=== PATIENT | female | born 1950 | race Caucasian/White ===

== ENCOUNTER 2016-07-13 12:22 | Emergency (ER) | payer MEDICARE, BC ==
[~2016-07-13] VITALS: Ht 167.6 cm; Wt 108.6 kg
[~2016-07-13 12:22] MED LIST: HYDR-4 PO; HYDR12.512 PO; LISI-114 PO; TRAM-261 PO; VITAMIN C
[2016-07-13 12:25] VITALS: Ht 167.6 cm; Wt 108.6 kg
--- NOTE | 2016-07-13 12:39 | NUR ---
PROVIDER KRAIG HERNANDEZ IN ROOM W/ PT.
[2016-07-13] MEDS ORDERED: NORMAL SALINE 1,000 ML IV ONE (12:45)
[2016-07-13] MEDS ORDERED: DEXAMETHASONE 4mg/ml - 1ml INJECTION IV ONE (12:45)
[2016-07-13] MEDS ORDERED: TRAM50TA4 PO (12:52)
[2016-07-13] MEDS ORDERED: HYDR-3989 PO (12:52)
[2016-07-13] MEDS ORDERED: HYDR25TA PO (12:52)
--- NOTE | 2016-07-13 13:11 | NUR ---
XRAY PT GONE TO XRAY VIA CART.
[2016-07-13 13:15] LABS: BASOPHILS % (AUTO) 0.3 % (0-2); EOSINOPHILS # (AUTO) 0.1 T/MM3 (0-0.5); EOSINOPHILS % (AUTO) 1.4 % (0-4); HCT - HEMATOCRIT 42.6 % (36-46); HGB - HEMOGLOBIN 14.3 GM/DL (12-16); IMMATURE GRANULOCYTE # (AUTO) 0.01 T/MM3 (0.00-0.03); IMMATURE GRANULOCYTE % (AUTO) 0.1 % (0.0-0.5); LYMPHOCYTES # (AUTO) 1.4 T/MM3 (1-4.8); MEAN CORPUSCULAR HGB 28.7 UUG (26-34); MEAN CORPUSCULAR HGB CONC(MCHC 33.6 GM/DL (31-37); MEAN CORPUSCULAR VOLUME 85.5 UM3 (80-100); MEAN PLATELET VOLUME 9.9 UM3 (9.4-12.4); MONOCYTES # (AUTO) 0.7 T/MM3 (0-0.8); MONOCYTES % (AUTO) 7.6 % (0-9.0); NEUTROPHILS #(AUTO)-ABSOLUTE 6.9 T/MM3 (1.8-7.7); NEUTROPHILS % (AUTO) 75.6 % (33-66); RED BLOOD COUNT 4.98 M/MM3 (4.00-5.20); WBC - WHITE BLOOD COUNT 9.2 T/MM3 (4.5-11.0)
--- NOTE | 2016-07-13 13:20 | NUR ---
XRAY PT BACK FROM XRAY VIA CART.
--- NOTE | 2016-07-13 13:28 | DI ---
INDICATION: ITS.REASON: cough PROCEDURE: CHEST 2-VIEWS UPRIGHT (PA \T\ LAT) Encounter: Initial COMPARISON: None FINDINGS: The lungs are clear without evidence of focal abnormal airspace opacity. There is no pleural effusion or pneumothorax. The heart size, mediastinal contours and pulmonary vascularity are within normal limits. There is no significant skeletal abnormality. IMPRESSION: No acute cardiopulmonary disease. .
--- NOTE | 2016-07-13 13:29 | ERPDOC ---
Departure Disposition Decision Date: Jul 13, 2016 Disposition Decision Time: 15:45 Disposition: 01 DISCHARGED HOME, SELF-CARE Impression Impression Impression: Primary Impression: Acute viral laryngitis Severity: Moderate Condition: Stable Seen By: Mid-level only Referrals: BLAZE CLAYTON DO (Family) Patient Instructions: Laryngitis (ED) Problems/Meds/Labs Reviewed?: Yes Medications reviewed and manag: Yes Additional Instructions: We did give you a dose of steroids through your IV today that should continue to help over the next few days. I do encourage you to drink cool or hot liquids to help with the pain and the swelling. Rest at home. Your labs and CT today are normal. I do want you to follow up with your primary care provider for reevaluation if you are not improving in the next 1-2 days. Follow up care ordered?: Yes Mental Status: Alert HPI - Respiratory General General Chief Complaint: Dyspnea/Respdistress Stated Complaint: PNEUMONIA Time Seen by Provider: 12:39 Source: patient Exam Limitations: no limitations HPI - Respiratory General Initial Comments She has had onset of post nasal drainage, dry cough, sore throat, and feeling unwell 2 days ago. Has not really improved. She has had some hoarseness as well. Denies nausea/vomiting. Went to immediate care today and was found to have a temp of 101 but no temp upon arrival to ER. She was not treated she states. Did have a negative flu swab at immediate care and also did get an RT treatment. Has not had trouble like this in the past. Occurred At: home Onset: Gradual Duration: other (Over the last 2 days) Severity: moderate Prior Episodes/Possible Cause: no prior episodes Modifying Factors: WORSE WITH: coughing Associated Symptoms: chest pain/soreness (due to frequent cough), cough, fever/ chills (reported at 101 at immediate care), nasal drainage (post nasal drainage) , sore throat, wheezing, DENIES: dizziness, earache, facial pain, headache, lightheadedness, muscle aches, nasal congestion, shortness of breath, sinus infection Hx of Similar Symptoms: No Allergies: Coded Allergies: No Known Allergies (Unverified , 07/13/16) Past History Past Medical History Metabolic: hypertension Surgical History Reproductive/: D&C Joint: carpal tunnel Family History Family PMH: FOUND: [place], hypertension Vaccines Hx Influenza Vaccination: No (DOES NOT TAKE) Hx Pneumococcal Vaccination: No Social History Smoking Status: Never smoker Substance Use Type: does not use Alcohol Intake: none Review of Systems Constitutional Constitutional: chills, fatigue, fever, DENIES: dizziness, weakness ENMT Ears: DENIES: drainage, pain Sinuses: rhinorrhea, DENIES: congestion Mouth/Throat: change in voice, hoarsness, scratchy throat, sore throat, DENIES : drooling, painful swallowing Cardiovascular Cardiac: chest pain, DENIES: orthopnea Rhythm/Rate: DENIES: irregular beat, palpitations Pulmonary Respiratory: cough, dyspnea, DENIES: sputum, tachypnea GI Upper Abdomen: DENIES: nausea, pain, vomiting Lower Abdomen: DENIES: constipation, diarrhea, pain Integumentary Skin: DENIES: rash Neurological General: DENIES: headache, numbness, tingling, weakness Physical Exam General General Nourishment: well nourished, well developed, appears stated age, no acute distress, adult Vitals and Pain First Documented Vital Signs Date Time Temp Pulse Resp B/P Pulse Ox O2 Delivery O2 Flow Rate FiO2 07/13/16 12:25 98.3 83 2 187/90 98 Room Air Weight: Kilograms: 108.600 Height (feet): 5 Height (inches): 6.00 Triage Pain Scale: Normal Exams: Neck: Full range of motion, without adenopathy, JVD, bruits or thyromegaly CV: Regular rate and rhythm, without murmur or gallop, Pulses 2+ all extremities, capillary refill, <2 seconds all ext., no pedal edema noted Abdomen: Bowel sounds positive, soft, non-tender, non-distended, no hepatosplenomegaly, masses or bruits noted Lymphatic: No lymphadenopathy, or lymphedema noted Integumentary: No rashes, hives, or bruising noted Neurologic: Patient is alert, and oriented Psychiatric: Patient exhibits, appropriate attention, emotion and affect ENMT (brief) ENMT Brief: FOUND: TM clear, TM good light reflex, ear canals clear, mucosa moist, normal dentition, normal tonsils, other (Is noted to have a hoarse voice) , NOT FOUND: lesions, nasal erythema, nasal exudate, nasal swelling, petechiae, pharnyx erythema, tonsillar deviation Respiratory (brief) Respiratory: FOUND: other (Slightly diminished throughout), wheezes (Upper airway noise slightly, no stridor or respiratory distress at all) Differential Diagnoses Differential Diagnoses Considering: Acute Bronchitis, Acute Respiratory Failure, Allergic Reaction, Anaphylaxis, Asthma Exacerbation, Costochondritis, Croup, Epiglottitis, Pneumonia, Viral Syndrome Progress Results/Orders Orders Procedure Category Date Status Time Respiratory Panel, Pcr LAB 07/13/16 Complete 12:43 Cbc W/Auto LAB 07/13/16 Complete Diff-Reflex Manual Bmp - Basic Metabolic LAB 07/13/16 Complete Panel Iv Lock (Ed Only) EDM 07/13/16 Transmitted 12:43 Chest, Pa & Lateral RAD 07/13/16 Resulted 12:43 Dexamethasone Inj PHA 07/13/16 Complete (Decadron) 12:45 Normal Saline (Normal PHA 07/13/16 Complete Saline Iv) 12:45 Ct Neck W/Contrast CT 07/13/16 Resulted Iohexol (Omnipaque) PHA 07/13/16 Complete 14:55 Normal Saline (Ns) PHA 07/13/16 Complete 14:55 Saline Flush (Iv PHA 07/13/16 Complete Flush) 14:55 Lab Results Laboratory Tests Test 07/13/16 12:58 07/13/16 13:10 Adenovirus (PCR) Negative Bordetella parapertussis DNA (PCR) Negative Chlamydia pneumoniae DNA (PCR) Negative Coronavirus Type OC43 (PCR) Negative Coronavirus Type HKU1 (PCR) Negative Coronavirus Type 229E (PCR) Negative Coronavirus Type NL63 (PCR) Negative Human Metapneumovirus (PCR) Negative Influenza Virus Type A (PCR) Negative Influenza Virus Type B (PCR) Negative Mycoplasma pneumoniae (PCR) Negative Parainfluenza Type 1 (PCR) Negative Parainfluenza Type 2 (PCR) Negative Parainfluenza Type 3 (PCR) Negative Parainfluenza Type 4 (PCR) Negative Respiratory Syncytial Virus (PCR) Negative Enterovirus/Rhinovirus (PCR) Negative White Blood Count 9.2T/MM3 Red Blood Count 4.98M/MM3 Hemoglobin 14.3GM/DL Hematocrit 42.6% Mean Corpuscular Volume 85.5UM3 Mean Corpuscular Hemoglobin 28.7UUG Mean Corpuscular Hemoglobin Concent 33.6GM/DL RDW Standard Deviation 42.4FL Platelet Count 166T/MM3 Mean Platelet Volume 9.9UM3 Immature Granulocyte % (Auto) 0.1% Neutrophils (%) (Auto) 75.6% Lymphocytes (%) (Auto) 15.0% Monocytes (%) (Auto) 7.6% Eosinophils (%) (Auto) 1.4% Basophils (%) (Auto) 0.3% Absolute Immature Granulocyte (auto 0.01T/MM3 Absolute Neutrophils (auto) 6.9T/MM3 Absolute Lymphocytes (auto) 1.4T/MM3 Absolute Monocytes (auto) 0.7T/MM3 Absolute Eosinophils (auto) 0.1T/MM3 Absolute Basophils (auto) 0.0T/MM3 Turbidity < 20 Sodium Level 144MEQ/L Potassium Level 4.0MEQ/L Chloride Level 106MEQ/L Carbon Dioxide Level 29MEQ/L Anion Gap 9MEQ/L Blood Urea Nitrogen 20.0MG/DL Creatinine 0.9MG/DL Glomerular Filtration Rate Calc 63 BUN/Creatinine Ratio 22RATIO Glucose Level 111MG/DL Calculated Osmolality 281MOSM/KG Calcium Level 9.1MG/DL Icterus Index < 2 Chemistry Specimen Hemolysis < 15 Medications Current ED Medications Dexamethasone Sodium Phosphate 8 mg 8 mg O ONCE IV Last administered on 13:31; Start 07/13/16 at 12:45; Stop 07/13/16 at 12:46; Status DC Sodium Chloride (Normal Saline IV) 1,000 ml @ 500 mls/hr Q2H ONCE IV Last administered on 07/13/16 13:25; Start 07/13/16 at 12:45; Stop 07/13/16 at 14:44 ; Status DC Iohexol 1 bottle 1 bottle STK-MED ONCE .ROUTE ; Start 07/13/16 at 14:55; Stop at 14:56; Status DC Sodium Chloride (NS) 100 ml @ As Directed STK-MED ONCE .ROUTE ; Start 07/13/16 at 14:55; Stop 07/13/16 at 14:56; Status DC Sodium Chloride (Iv Flush) 10 ml STK-MED ONCE .ROUTE ; Start 07/13/16 at 14:55; Stop 07/13/16 at 14:56; Status DC Progress Progress CBC, BMP today are normal. Respiratory panel is negative. She does feel like her throat hurts a little less. Is not having as much burning in her throat. She does state that she feels a little like her throat is closing off however. Will go ahead and get CT of soft tissue to confirm patent airway and no airway compromise. CT scan of soft tissue is negative today. Will go ahead and let her go home today. Have her rest and take cool/warm liquids to help with the pain. She does have Breeding at home for pain. Follow up with her PCP this week for reevaluation in the next 1-2 days. Xray Xray : Reason for Exam: dyspnea Xray: CXR Portable Interpretation: Normal CT CT : Reason for Exam: throat pain and swelling CT: Other (Soft tissue neck-with contrast) Interpretation: Normal LOPEZ HAND APRN Jul 13, 2016 13:29
[2016-07-13 13:36] LABS: ANION GAP 9 MEQ/L (5-15); BUN/CREATININE RATIO 22 RATIO (6-26); CALCIUM 9.1 MG/DL (8.4-10.2); CHLORIDE 106 MEQ/L (98-107); CO2 - CARBON DIOXIDE 29 MEQ/L (22-30); CREATININE 0.9 MG/DL (0.7-1.2); GLOMERULAR FILTRATION RATE 63; GLUCOSE 111 MG/DL (65-110); SODIUM 144 MEQ/L (134-144)
[2016-07-13] MEDS ORDERED: NORMAL SALINE 100 ML ONE (14:55)
[2016-07-13] MEDS ORDERED: IOHEXOL 300 MG/ML 75ml INJECTION ONE (14:55)
[2016-07-13] MEDS ORDERED: SALINE FLUSH 10ml SYRINGE ONE (14:55)
--- NOTE | 2016-07-13 15:20 | NUR ---
BACK FROM XRAY
--- NOTE | 2016-07-13 15:41 | DI ---
Indication: ITS.REASON: hoarseness, feels like her throat is swollen PROCEDURE: CT NECK W/CONTRAST: Encounter: Initial Comparison: None Technique: Axial CT images were performed through the neck with intravenous contrast. Coronal and sagittal two-dimensional reformats Automated Exposure Control and Iterative Reconstruction dose reducing techniques were utilized. Contrast: Omnipaque 300 75 mL Findings: The mucosal space of the nasopharynx, oropharynx, and hypopharynx is symmetrical. There is no evidence of adenopathy or mass effect. The parapharyngeal space is nondisplaced. Lung window images of the apices are clear. Visualized paranasal sinuses are clear. Mastoid air cells and middle ear cavities are well pneumatized. Moderate degenerative changes of the lower cervical spine noted. Impression: Negative for mass or adenopathy. .
[2016-07-13 16:15] VITALS: BP 156/66; PULSE 92; RESP 2; TEMP 98.3; O2SAT 95
== END 2016-07-13 16:15 | disposition home or self-care (01) ==
LOC: ED 12:22
DX: J04.0 Acute laryngitis (principal); B97.89 Other viral agents as the cause of diseases classified elsewhere
CPT/HCPCS: 70491; 71020; 80048; 85025; 87486; 87581; 87633; 87798; 96374; 99284; J1100; J7030; J7050; Q9967

== ENCOUNTER → 2016-08-25 | Outpatient (CLI) | payer MEDICARE, BC ==
[~2016-08-25] MED LIST changes: +HYDR-3989 PO; -HYDR-4 PO; -HYDR12.512 PO; +HYDR25TA PO; +IOHEXOL 350 MG/ML 75ml INJECTION ONE; -LISI-114 PO; +NORMAL SALINE 100 ML ONE; -TRAM-261 PO; +TRAM50TA4 PO; -VITAMIN C
== END ==
LOC: LABN 11:33
PROVIDERS: ATTEND Nurse Practitioner Family
DX: M79.89 Other specified soft tissue disorders (principal)
CPT/HCPCS: 85379; J7050; Q9967

== ENCOUNTER → 2016-08-25 | Outpatient (CLI) | payer MEDICARE, BC ==
[~2016-08-25] MED LIST changes: +SALINE FLUSH 10ml SYRINGE ONE
--- NOTE | 2016-08-25 14:46 | DI ---
EXAM: CTA PULMONARY EMBOLI LOCATION OF DICTATION: [place] HISTORY: ITS.REASON: R79.1 Abnormal coagulation profile; M79.89 Other specified soft t COMPARISON: No prior studies available for comparison. TECHNIQUE: Multiple contiguous axial images were obtained of the chest with contrast utilizing 85 mL of Omnipaque [address] angiogram protocol. Coronal, sagittal, and MIP reformatted images were utilized. Automated Exposure Control and Iterative Reconstruction dose reducing techniques were utilized. FINDINGS: The heart size is upper limits normal. There is no pericardial effusion. The visualized portions of the thoracic aorta and major branch vessels of the aortic arch fills with contrast homogenously and are unremarkable. There are no central pulmonary artery filling defects to suggest pulmonary artery embolism. Limited evaluation of third and fourth order pulmonary artery branches due to patient body habitus and contrast bolus timing. There is subtle nonspecific groundglass opacities within the bilateral lungs and bilateral dependent atelectasis. No pleural effusions or consolidating opacities. No suspicious pulmonary nodules. There is no axillary, hilar, or mediastinal lymphadenopathy. Mild to moderate spondylosis of the thoracic spine. No suspicious or destructive osseous lesions. IMPRESSION: 1. Limited CT angiogram due to patient body habitus and contrast bolus timing without central pulmonary artery filling defects to suggest pulmonary embolism. Third and fourth order pulmonary artery branches are less well-defined. 2. There is suggested bilateral dependent atelectasis. Subtle nonspecific groundglass opacities bilaterally slightly greater in the upper lobes. .
== END ==
LOC: IMA 13:30
PROVIDERS: ATTEND Nurse Practitioner Family
DX: R91.8 Other nonspecific abnormal finding of lung field (principal); M79.89 Other specified soft tissue disorders; R79.1 Abnormal coagulation profile
CPT/HCPCS: 71275; J7050; Q9967

== ENCOUNTER → 2016-09-10 | Outpatient (CLI) | payer MEDICARE, BC ==
[~2016-09-10] MED LIST changes: +IOHEXOL 350 MG/ML 50ml INJECTION ONE; +NORMAL SALINE 0 ML ONE; -NORMAL SALINE 100 ML ONE
--- NOTE | 2016-09-10 15:23 | DI ---
Indication: ITS.REASON: R21 RASH; I77.6 Arteritis PROCEDURE: CTA UPPER EXTREMITY LEFT W/WO: Encounter: Initial Comparison: None Technique: CT angiography of the left upper extremity was performed with and without contrast. Coronal and sagittal MIP reconstructed images were created and reviewed. Three-dimensional surface shaded volume rendered imaging of the arterial vasculature was also created by the technologist on a dedicated workstation under the direction of the interpreting radiologist and reviewed. Automated Exposure Control and Iterative Reconstruction dose reducing techniques were utilized. Contrast: Omnipaque 350 120mL Findings: Noncontrast images show calcified granulomas in the visualized left lung field. No left axillary adenopathy muscular attenuation is grossly normal. No focal fluid collections seen. The visualized left abdomen and pelvis show no acute findings. Postcontrast images show normal appearance of the left subclavian and axillary artery. The brachial artery also appears normal. There is contrast seen extending into the bifurcation into the radial and ulnar arteries which appear patent through the wrist. The digital arteries are not opacified due to the timing of the scan which is slightly ahead of the contrast bolus. These are too small for adequate evaluation on this modality anyway. No evidence of a vascular aneurysm or dissection. There is soft tissue swelling seen in the dorsal forearm. Impression: No evidence of arterial occlusion, dissection or aneurysm. No obvious CT evidence of arteritis. Conventional angiography would be more sensitive for evaluation of the arteries in the hand and wrist. .
== END ==
LOC: IMA 13:54
PROVIDERS: ATTEND Family Medicine
DX: R21 Rash and other nonspecific skin eruption (principal)
CPT/HCPCS: 73206; Q9967